=== PATIENT | female | born 1945 | race Caucasian/White ===

== ENCOUNTER → 2016-10-22 | Outpatient (CLI) | payer MEDICARE, BC ==
[2016-10-22 14:04] LABS: HEMOGLOBIN 14.1 gm/dl (12.3-15.3); RED BLOOD COUNT 4.66 M/UL (4.00-5.10); WHITE BLOOD COUNT 4.2 K/UL (4.5-11.0)
[2016-10-22 14:26] LABS: BUN/CREATININE RATIO 28 (0-10)
== END ==
LOC: LAB 12:54
PROVIDERS: Physician Assistant
DX: E78.5 Hyperlipidemia, unspecified (principal); I10 Essential (primary) hypertension; E11.9 Type 2 diabetes mellitus without complications; E55.9 Vitamin D deficiency, unspecified
CPT/HCPCS: 36415; 80053; 80061; 82043; 82570; 83036; 85025

== ENCOUNTER → 2016-10-31 | Outpatient (CLI) | payer MEDICARE, BC | LOC: US 15:00 | DX: M25.562 Pain in left knee (principal); M79.89 Other specified soft tissue disorders; M17.12 Unilateral primary osteoarthritis, left knee | CPT/HCPCS: 73560 ==

== ENCOUNTER 2020-12-07 14:36 | Emergency (ER) | payer MEDICARE, BC ==
[2020-12-07 17:25] LABS: RED BLOOD COUNT 4.7 M/UL (4.00-5.10); WHITE BLOOD COUNT 5.1 K/UL (4.5-11.0)
[2020-12-07 17:41] LABS: BUN/CREATININE RATIO 32 (0-10)
== END 2020-12-07 18:50 | disposition home or self-care (01) ==
LOC: ER1 14:36
PROVIDERS: Preventive Medicine Occupational Medicine
DX: R00.0 Tachycardia, unspecified (principal); I10 Essential (primary) hypertension
CPT/HCPCS: 71045; 80053; 82550; 82553; 83874; 84484; 85025; 93005; 99285; J7030

== ENCOUNTER → 2020-12-08 | Outpatient (CLI) | payer MEDICARE, BC | LOC: HEART 5 11:52 | DX: R06.02 Shortness of breath (principal); R00.0 Tachycardia, unspecified ==

== ENCOUNTER → 2021-01-12 | Outpatient (CLI) | payer MEDICARE, BC | LOC: HEART 5 13:27 | DX: R06.02 Shortness of breath (principal); I08.1 Rheumatic disorders of both mitral and tricuspid valves | CPT/HCPCS: 93306 ==

== ENCOUNTER 2021-09-24 12:45 | Emergency (ER) | payer MEDICARE, BC ==
[2021-09-24 13:25] LABS: RED BLOOD COUNT 5.07 M/UL (4.00-5.10); WHITE BLOOD COUNT 8.1 K/UL (4.5-11.0)
[2021-09-24 13:51] LABS: BUN/CREATININE RATIO 32 (0-10)
[2021-09-24] MEDS ORDERED: PROTONIX 40 MG40 M1 PO (18:33)
[2021-09-24] MEDS ORDERED: ZOFRAN ODT 4 MG4 MG PO (18:33)
== END 2021-09-24 18:53 | disposition home or self-care (01) ==
LOC: ER1 12:45
PROVIDERS: Family Medicine
DX: K43.9 Ventral hernia without obstruction or gangrene (principal); E66.01 Morbid (severe) obesity due to excess calories; E10.65 Type 1 diabetes mellitus with hyperglycemia; Z88.8 Allergy status to other drugs, medicaments and biological substances; Z88.5 Allergy status to narcotic agent
CPT/HCPCS: 80053; 81001; 82550; 82553; 82962; 83605; 83690; 84484; 85025; 93005; 96374; 96375; 96376; 99284; J2270; J2405; J7030; Q9967

== ENCOUNTER → 2021-10-05 | Outpatient (CLI) | payer MEDICARE, BC ==
[~2021-10-05] MED LIST: PROTONIX 40 MG40 M1 PO; ZOFRAN ODT 4 MG4 MG PO
== END ==
LOC: EXRD 09:40
DX: R10.11 Right upper quadrant pain (principal); K76.0 Fatty (change of) liver, not elsewhere classified; N28.1 Cyst of kidney, acquired
CPT/HCPCS: 76705

== ENCOUNTER → 2021-12-28 | Outpatient (CLI) | payer MEDICARE, BC | LOC: SLEEP 14:07 | DX: G47.33 Obstructive sleep apnea (adult) (pediatric) (principal) | CPT/HCPCS: 95810 ==

== ENCOUNTER → 2022-02-07 | Outpatient (CLI) | payer MEDICARE, BC | LOC: EXRD 01-31 09:30 | DX: Z13.820 Encounter for screening for osteoporosis (principal); Z78.0 Asymptomatic menopausal state | CPT/HCPCS: 77080 ==